=== PATIENT | female | born 1970 | race African-American/Black ===

== ENCOUNTER 2018-04-26 18:01 | Emergency (ER) | payer SELFPAY ==
[2018-04-26 18:28] LABS: #Basophils 0.1 thou/uL (0.0-0.2); #Lymphocytes 1.9 thou/uL (1.20-3.40); #Monocytes 0.5 thou/uL (0.11-0.59); #Neutrophils 2.3 thou/uL (1.40-6.50); %Basophils 2.4 % (0.0-1.0); %Eosinophils 0.9 % (0.0-10.0); %Monocytes 10.9 % (0.0-10.0); %Neutrophils 46.7 % (42.0-75.0); Hemoglobin 11.5 g/dL (12.0-16.0); Mean Corpuscular HGB CONC 34.5 g/dL (32.0-36.0); Mean Corpuscular Hemoglobin 29.9 pg (27.0-31.0); Mean Corpuscular Volume 86.7 fL (78.0-98.0); Mean Platelet Volume 7.1 fL (7.4-10.4); Platelet Count 266 thou/uL (130-400); RBC Distribution Width 12.2 % (11.5-14.5); Red Blood Cell (RBC) Count 3.86 mill/uL (4.20-5.40)
[2018-04-26] MEDS ORDERED: Ketorolac Tromethamine 30 MG/ML VIAL ONE (18:42)
[2018-04-26 18:43] LABS: ALT (SGPT) 21 U/L (8-55); AST (SGOT) 23 U/L (5-34); Albumin 4.1 g/dL (3.5-5.0); Alkaline Phosphatase 50 U/L (40-150); Anion Gap 13 mmol/L (10-20); BUN (Urea Nitrogen) 8 mg/dL (7.0-18.7); Bilirubin, Total 0.4 mg/dL (0.2-1.2); Calc. Creatinine Clearance 0 mL/min (70-130); Calcium 8.9 mg/dL (7.8-10.44); Carbon Dioxide 22 mmol/L (22-29); Chloride 106 mmol/L (98-107); Estimated GFR-MDRD Greater than 90; Glucose 97 mg/dL (70-105); Potassium 4.2 mmol/L (3.5-5.1); Protein, Total 8.1 g/dL (6.0-8.3); Sodium 137 mmol/L (136-145)
[2018-04-26 18:45] LABS: CKMB 0.5 ng/mL (0-6.6); Troponin I Less than 0.010 ng/mL (< 0.028)
[2018-04-26] MEDS ORDERED: Lisinopril 20 MG TAB ONE (18:56)
[2018-04-26] MEDS ORDERED: SMX/TMP 800-160mg/20 ML UDCUP ONE (19:06)
[2018-04-26] MEDS ORDERED: Azithromycin 250 MG TAB ONE (19:22)
[2018-04-26] MEDS ORDERED: methylPREDNISolone Sod Succ/PF 125 MG/2 ML VIAL ONE (19:22)
--- NOTE | 2018-04-26 20:49 | RAD ---
AP PORTABLE CHEST: 04/26/2018 1803 HOURS COMPARISON: 03/09/2011 FINDINGS: The heart is mildly enlarged. It is unchanged from before. There is no vascular congestion, edema, or pleural effusion. No focal pulmonary infiltrate is seen. IMPRESSION: No acute thoracic findings. POS: HOME
--- NOTE | 2018-04-26 20:53 | CT ---
CT ANGIO CHEST: 04/26/2018 TECHNIQUE: After a bolus of IV contrast, axial slices were acquired. Oblique coronal MIPs through the pulmonary arteries were subsequently done. FINDINGS: There is excellent opacification of the arteries with no defects to suggest emboli. There is no sign of aortic aneurysm or dissection. The heart is mildly enlarged, but there is no pericardial effusio n. The lungs are clear. There is no mass, infiltrate, or effusion. No mediastinal mass or adenopat hy is seen. Scans into the upper abdomen show some enlargement of the right adrenal gland, which measures about 1 .5 cm in transverse diameter. Looking back at a 03/29/2014 CT of the abdomen, it has not changed in size. Its mean density was 11. The lack of change and low density make it almost certain that this is an adenoma. No other grossly abnormal findings were seen in the scanned portions of the upper abd omen. IMPRESSION: No evidence of pulmonary embolism or other acute cardiopulmonary process. POS: HOME
== END 2018-04-26 19:55 | disposition home or self-care (01) ==
LOC: BURERS 18:01
DX: I10 Essential (primary) hypertension (principal); J06.9 Acute upper respiratory infection, unspecified; F17.210 Nicotine dependence, cigarettes, uncomplicated
CPT/HCPCS: 71045; 71275; 80053; 82553; 84484; 85025; 85379; 93005; 94760; 96361; 96374; 96375; J1885; J2930

== ENCOUNTER 2022-05-27 11:18 | Emergency (ER) | payer OTHER ==
[2022-05-27] MEDS ORDERED: Ondansetron ODT 4 MG TAB ONE (12:03)
[2022-05-27 12:35] LABS: #Eosinphils 0.1 thou/uL (0.0-0.7); #Lymphocytes 1.7 thou/uL (1.20-3.40); #Monocytes 0.4 thou/uL (0.11-0.59); #Neutrophils 2.3 thou/uL (1.40-6.50); %Basophils 0.5 % (0.0-1.0); %Eosinophils 1.3 % (0.0-10.0); %Lymphocytes 38.6 % (21.0-51.0); %Neutrophils 51.7 % (42.0-75.0); Hemoglobin 12.9 g/dL (12.0-16.0); Mean Corpuscular HGB CONC 32.4 g/dL (32.0-36.0); Mean Corpuscular Hemoglobin 30.1 pg (27.0-31.0); Mean Corpuscular Volume 93.1 fl (78.0-98.0); Mean Platelet Volume 6.7 fL (7.4-10.4); Platelet Count 312 10x3/uL (130-400); RBC Distribution Width 13.2 % (11.5-14.5); Red Blood Cell (RBC) Count 4.26 mill/uL (4.20-5.40); White Blood Cell (WBC) Count 4.4 10x3/uL (4.8-10.8)
[2022-05-27] MEDS ORDERED: Morphine 10 MG/ML VIAL ONE (12:38)
[2022-05-27 12:54] LABS: ALT (SGPT) 20 U/L (8-55); AST (SGOT) 23 U/L (5-34); Albumin 4.2 g/dL (3.5-5.0); Alkaline Phosphatase 69 U/L (40-110); Anion Gap 12 mmol/L (10-20); BUN (Urea Nitrogen) 5 mg/dL (7.0-18.7); Bilirubin, Total 0.6 mg/dL (0.2-1.2); Calc. Creatinine Clearance 0 mL/min (70-130); Carbon Dioxide 27 mmol/L (22-29); Chloride 103 mmol/L (98-107); Estimated GFR 104; Globulin 4.2 g/dL (2.4-3.5); Glucose 101 mg/dL (70-105); Lipase 29 U/L (8-78); Potassium 3.3 mmol/L (3.5-5.1); Protein, Total 8.4 g/dL (6.0-8.3); Sodium 139 mmol/L (136-145)
[2022-05-27] MEDS ORDERED: Ketorolac Tromethamine 30 MG/ML VIAL ONE (13:09)
[2022-05-27 14:01] LABS: Bilirubin Negative (Negative); Blood, Urine Negative (Negative); Clarity Clear (Clear); Glucose, Urine (Dipstick) Negative (Negative); Ketone, Urine Negative (Negative); Leukocyte Negative (Negative); Nitrite Negative (Negative); Protein, Urine (Dipstick) Negative (Neg-Trace); Specific Gravity, Urine 1.015 (1.005-1.030); Urobilinogen 0.2 mg/dL (Less than 2); pH, Urine 8.5 (5.0-9.0)
[2022-05-27 14:02] LABS: Pregnancy Test - Urine (BHCG) Negative (Negative); Pregu Control Background? CLEAR/WHITE (CLR/WHITE); Pregu Control Bar Appear? YES (CONTROL BAR); Specific Gravity 1.015 (1.002-1.036)
[2022-05-27] MEDS ORDERED: metroNIDAZOLE 250 MG TAB ONE (16:33)
[2022-05-27] MEDS ORDERED: Ciprofloxacin 500 MG TAB ONE (16:33)
== END 2022-05-27 16:45 | disposition home or self-care (01) ==
LOC: BURERS 11:18
DX: K52.9 Noninfective gastroenteritis and colitis, unspecified (principal); F17.210 Nicotine dependence, cigarettes, uncomplicated
CPT/HCPCS: 36415; 74176; 80053; 81003; 81025; 83690; 85025; 87804; 96372; J1885; J2270; Q0162

== ENCOUNTER 2025-05-06 09:29 | Emergency (ER) | payer BC ==
[2025-05-06] MEDS ORDERED: Ondansetron PF 4 MG/2 ML Vial ONE (10:01)
[2025-05-06 10:10] LABS: #Basophils 0.0 thou/uL (0.0-0.2); #Eosinophils 0.0 thou/uL (0.0-0.7); #Lymphocytes 1.4 thou/uL (1.20-3.40); #Monocytes 0.3 thou/uL (0.11-0.59); #Neutrophils 3.3 thou/uL (1.40-6.50); %Basophils 1.0 % (0.0-1.0); %Eosinophils 0.4 % (0.0-10.0); %Lymphocytes 27.1 % (21.0-51.0); %Monocytes 5.6 % (0.0-10.0); %Neutrophils 66.0 % (42.0-75.0); Hematocrit 33.6 % (36.0-47.0); Hemoglobin 11.5 g/dL (12.0-16.0); Mean Corpuscular Hemoglobin 30.9 pg (27.0-31.0); Mean Corpuscular Volume 90.6 fl (78.0-98.0); Platelet Count 323 10x3/uL (130-400); Red Blood Cell (RBC) Count 3.71 mill/uL (4.20-5.40); White Blood Cell (WBC) Count 5.0 10x3/uL (4.8-10.8)
[2025-05-06] MEDS ORDERED: Iopamidol 370 76% 100 ML VIAL ONE (10:18)
[2025-05-06 10:30] LABS: ALT (SGPT) 8 U/L (Less than 34); AST (SGOT) 18 U/L (11-34); Albumin 3.8 g/dL (3.1-4.5); Alkaline Phosphatase 77 U/L (40-110); Anion Gap 15 mmol/L (10-20); BUN (Urea Nitrogen) 6 mg/dL (9.8-20.1); Bilirubin, Total 0.4 mg/dL (0.3-1.2); Calc. Creatinine Clearance 0 mL/min (70-130); Calcium 9.4 mg/dL (7.8-10.44); Carbon Dioxide 23 mmol/L (22-29); Chloride 105 mmol/L (98-107); Globulin 4.3 g/dL (2.4-3.5); Glucose 92 mg/dL (70-105); Lipase 45 U/L (8-78); Magnesium 1.6 mg/dL (1.6-2.6); Potassium 3.4 mmol/L (3.5-5.1); Sodium 140 mmol/L (136-145)
[2025-05-06 10:55] LABS: Glucose, Urine (Dipstick) Negative (Negative); Leukocyte Trace (Negative); Protein, Urine (Dipstick) Negative (Neg-Trace); Specific Gravity, Urine 1.015 (1.005-1.030)
[2025-05-06 10:59] LABS: Bacteria/HPF Rare-Few HPF (None Seen); CAUTI Indications for Culture Pelvic or flank pain; RBC/HPF 0-3 HPF (0-3); WBC/HPF 0-3 HPF (0-3); Yeast-Budding Rare HPF (None Seen)
[2025-05-06 11:00] LABS: Cocaine Metabolite Screen Negative (Negative); THC/Cannabinoid Screen PRELIM POSITIVE (Negative); Tricyclic Screen Negative (Negative)
[2025-05-06 11:01] LABS: Urine Culture Reflex No No
== END 2025-05-06 11:43 ==
LOC: BURERS 09:29
DX: R10.9 Unspecified abdominal pain (principal); E78.5 Hyperlipidemia, unspecified; I25.2 Old myocardial infarction; I10 Essential (primary) hypertension; F17.210 Nicotine dependence, cigarettes, uncomplicated; Z79.82 Long term (current) use of aspirin; Z79.01 Long term (current) use of anticoagulants; Z79.899 Other long term (current) drug therapy
CPT/HCPCS: 74177; 80053; 80306; 81001; 83690; 83735; 85025; 96374; 96375; J2270; J2405; Q9967